=== PATIENT | male | born 1960 | race Caucasian/White ===

== ENCOUNTER → 2024-05-11 11:15 | Outpatient (REF) | payer OTHER, SELFPAY | LOC: HWRAD 11:15 | PROVIDERS: ATTENDING PHYSICIAN Family Medicine | DX: M54.6 Pain in thoracic spine (principal); G89.29 Other chronic pain | CPT/HCPCS: 71101; 72072 ==

== ENCOUNTER → 2024-05-30 09:00 | Outpatient (REF) | payer OTHER, SELFPAY | LOC: MRI 3T 09:00 | PROVIDERS: ATTENDING PHYSICIAN Family Medicine | DX: M54.6 Pain in thoracic spine (principal); G89.29 Other chronic pain | CPT/HCPCS: 72146 ==

== ENCOUNTER 2024-10-20 06:25 | Day surgery (SDC) | payer OTHER, SELFPAY | END 2024-10-20 11:07 | disposition home or self-care (01) | LOC: GI 06:25 | PROVIDERS: ATTENDING PHYSICIAN Internal Medicine | DX: Z12.11 Encounter for screening for malignant neoplasm of colon (principal); D12.3 Benign neoplasm of transverse colon; K55.20 Angiodysplasia of colon without hemorrhage; K57.30 Diverticulosis of large intestine without perforation or abscess without bleeding; K64.8 Other hemorrhoids; Z86.0100 Personal history of colon polyps, unspecified | CPT/HCPCS: 45385; 45380; 88305 ==